=== PATIENT | female | born 1950 | race Caucasian/White ===

== ENCOUNTER 2016-12-18 14:22 | Emergency (ER) | payer BC ==
[~2016-12-18] VITALS: Ht 162.6 cm; Wt 60.5 kg
[~2016-12-18 14:22] MED LIST: ASPIRIN 81M81 MG/TA2 PO; CELEXA20 MG PO; CLARITIN; COZAAR100 MG PO; PHENERGAN 25 TA25 MG PO; PRAVACHOL 20MG20 MG PO; TOPROL XL 50MG50 MG PO; [UNRECOGNIZED DRUG - OTHER]
[2016-12-18 14:25] VITALS: PULSE 80; TEMP 98
[2016-12-18] MEDS ORDERED: PROTONIX 40MG T40 MG PO (15:03)
[2016-12-18] MEDS ORDERED: DESYREL 100MG100 MG PO (15:03)
[2016-12-18 15:35] LABS: BASO % 0.7 % (0.0-2.0); EOS % 0.4 % (0-4.0); GRAN # 3.7 (1.4-6.5); HEMATOCRIT 38.4 % (37.0-47.0); LYMPH # 0.4 (1.2-3.4); LYMPH % 7.9 % (20.0-51.0); MEAN CELL VOLUME 91 fl (80.0-100.0); MEAN CORPUSCULAR HEMOGLOBIN 31 pg (27.0-31.0); MEAN CORPUSCULAR HGB CONC 34 g/dl (33.0-37.0); MEAN PLATELET VOLUME 10.2 fl (7.4-10.4); MONO # 0.4 (0.1-0.6); MONO % 9.6 % (1.7-9.3); PLATELET COUNT 225 K/mm3 (130-400); RED BLOOD COUNT 4.23 M/mm3 (4.10-5.30); REDCELL DISTRIBUTION WIDTH-CV 12.2 % (11.5-14.5); WHITE BLOOD COUNT 4.6 K/mm3 (4.8-10.8)
[2016-12-18 15:46] LABS: ADJUSTED CALCIUM 8.7 mg/dL (8.4-10.2); ALANINE AMINOTRANSFERASE 32 U/L (9-52); ALBUMIN 4.5 gm/dL (3.5-5.0); ALKALINE PHOSPHATASE 111 U/L (50-136); ANION GAP 16 mmol/L (7-16); BILIRUBIN,TOTAL 0.7 mg/dL (0.0-1.0); BLOOD UREA NITROGEN 14 mg/dL (7-17); CALCIUM 9.1 mg/dL (8.4-10.2); CARBON DIOXIDE 20 mmol/L (22-30); CHLORIDE 95 mmol/L (98-107); CREATININE, serum 1.13 mg/dL (0.52-1.25); GLUCOSE 102 mg/dL (74-106); LIPASE 295 U/L (23-300); POTASSIUM 4.4 mmol/L (3.4-5.0); SODIUM 131 mmol/L (137-145); TOTAL PROTEIN 7.5 gm/dL (6.4-8.2)
[2016-12-18 15:47] LABS: C-REACTIVE PROTEIN < 0.5 mg/dL (0.0-0.9)
[2016-12-18 15:57] LABS: TROPONIN-I < 0.012 ng/mL (0.000-0.034)
[2016-12-18] MEDS ORDERED: ZOFRAN ODT4 MG PO (16:54)
[2016-12-18 17:04] LABS: PH 7 (5-8); SQUAMOUS EPITHELIAL 0-2 /hpf; URINE APPEARANCE Clear; URINE BACTERIA Rare /hpf; URINE BILIRUBIN Negative (NEGATIVE); URINE BLOOD Negative (NEGATIVE); URINE COLOR Yellow; URINE GLUCOSE Negative (NEGATIVE); URINE KETONE 1+ (NEGATIVE); URINE RBC 0-2 /hpf; URINE UROBILINOGEN Negative (NEGATIVE)
[2016-12-18] MEDS ORDERED: PHENERGAN 25 TA25 MG PO (17:31)
[2016-12-18 17:34] VITALS: BP 159/78
== END 2016-12-18 17:35 | disposition home or self-care (01) ==
LOC: COL.ER 14:22
PROVIDERS: Emergency Medicine
DX: R11.10 Vomiting, unspecified (principal); R19.7 Diarrhea, unspecified; I10 Essential (primary) hypertension
CPT/HCPCS: J2405; J2550; J7030

== ENCOUNTER → 2016-12-28 | Outpatient (CLI) | payer BC ==
[~2016-12-28] MED LIST changes: +DESYREL 100MG100 MG PO; +PROTONIX 40MG T40 MG PO; +ZOFRAN ODT4 MG PO
== END ==
LOC: MC.RAD 13:15
DX: Z12.31 Encounter for screening mammogram for malignant neoplasm of breast (principal)

== ENCOUNTER → 2017-10-10 | Outpatient (CLI) | payer MEDICARE, BC | LOC: MC.RAD 12:54 | DX: Z12.31 Encounter for screening mammogram for malignant neoplasm of breast (principal) ==

== ENCOUNTER → 2018-10-14 | Outpatient (CLI) | payer MEDICARE, BC | LOC: MC.RAD 14:45 | DX: Z12.31 Encounter for screening mammogram for malignant neoplasm of breast (principal) ==

== ENCOUNTER → 2019-11-20 | Outpatient (CLI) | payer MEDICARE, BC | LOC: MC.RAD 10-20 13:15 | DX: Z12.31 Encounter for screening mammogram for malignant neoplasm of breast (principal) ==

== ENCOUNTER 2019-12-30 07:43 | Outpatient (CLI) | payer MEDICARE, BC ==
[2019-12-30] VITALS (7 sets, daily range): BP systolic 148–168; BP diastolic 80–96; PULSE 62–66; TEMP 98.4
[~2019-12-30] VITALS: Ht 162.7 cm; Wt 59.7 kg
[2019-12-30 08:30] LABS: HEMATOCRIT 39.4 % (37.0-47.0); MEAN CELL VOLUME 93 fl (80.0-100.0); MEAN CORPUSCULAR HEMOGLOBIN 31 pg (27.0-31.0); MEAN CORPUSCULAR HGB CONC 33 g/dl (33.0-37.0); MEAN PLATELET VOLUME 10.3 fl (7.4-10.4); PLATELET COUNT 275 K/mm3 (130-400); RED BLOOD COUNT 4.23 M/mm3 (4.10-5.30)
[2019-12-30 08:37] LABS: PROTHROMBIN TIME 11.7 SECONDS (9.7-12.8)
[2019-12-30] MEDS ORDERED: AVAPRO300 M1 PO (08:46)
[2019-12-30] MEDS ORDERED: PRAVACHOL 40MG40 MG PO (08:47)
[2019-12-30] MEDS ORDERED: DESYREL 50MG50 MG PO (08:48)
[2019-12-30] MEDS ORDERED: CELEXA 20MG20 MG/TAB PO (08:48)
[2019-12-30] MEDS ORDERED: ATIVAN 0.50.5 MG/TAB PO (08:49)
[2019-12-30 08:50] LABS: CALCIUM 9.7 mg/dL (8.4-10.2); CREATININE, serum 0.98 (0.52-1.25); POTASSIUM 4.5 mmol/L (3.4-5.0)
[2019-12-30] MEDS ORDERED: MASON NATURAL2000 IU PO (08:50)
[2019-12-30] MEDS ORDERED: PHENERGAN 25 TA25 MG PO (08:50)
[2019-12-30] MEDS ORDERED: CALTRATE 600 +1 TAB PO (08:51)
[2019-12-30] MEDS ORDERED: ASPIRIN 81M81 MG/TA2 PO (08:51)
--- NOTE | 2019-12-30 11:28 | NUR ---
Discharge instructions given to pt.pt verbalizes understanding.INT removed,catheter tip intact.Pt escorted out via wheelchair by this nurse.
== END 2019-12-30 11:29 | disposition home or self-care (01) ==
LOC: EUO 07:43
PROVIDERS: Internal Medicine Cardiovascular Disease
DX: Q21.1 Atrial septal defect (principal)
CPT/HCPCS: J2704; J7120

== ENCOUNTER 2020-01-25 10:59 | Emergency (ER) | payer MEDICARE, BC ==
[~2020-01-25] VITALS: Ht 162.6 cm; Wt 59.5 kg
[~2020-01-25 10:59] MED LIST changes: +ATIVAN 0.50.5 MG/TAB PO; +AVAPRO300 M1 PO; +CALTRATE 600 +1 TAB PO; +CELEXA 20MG20 MG/TAB PO; +DESYREL 50MG50 MG PO; +MASON NATURAL2000 IU PO; +PRAVACHOL 40MG40 MG PO
[2020-01-25 11:01] VITALS: TEMP 98.4
[2020-01-25 12:00] LABS: BASO % 0.6 % (0.0-2.0); EOS # 0.1 (0.0-0.7); EOS % 0.8 % (0-4.0); GRAN # 4.2 (1.4-6.5); GRAN % 66.4 % (42.2-75.2); HEMATOCRIT 39.9 % (37.0-47.0); HEMOGLOBIN 13.2 g/dl (12.5-16.0); LYMPH # 1.6 (1.2-3.4); LYMPH % 25.2 % (20.0-51.0); MEAN CELL VOLUME 93 fl (80.0-100.0); MEAN CORPUSCULAR HEMOGLOBIN 31 pg (27.0-31.0); MEAN CORPUSCULAR HGB CONC 33 g/dl (33.0-37.0); MONO # 0.4 (0.1-0.6); MONO % 6.7 % (1.7-9.3); PLATELET COUNT 273 K/mm3 (130-400); RED BLOOD COUNT 4.28 M/mm3 (4.10-5.30); REDCELL DISTRIBUTION WIDTH-CV 12.8 % (11.5-14.5)
[2020-01-25 12:05] LABS: ALANINE AMINOTRANSFERASE 15 U/L (4-34); ALBUMIN 4.4 gm/dL (3.5-5.0); ALKALINE PHOSPHATASE 106 U/L (50-136); ANION GAP 9 mmol/L (7-16); AST,SGOT 35 U/L (15-37); BILIRUBIN,TOTAL 0.6 mg/dL (0.0-1.0); BLOOD UREA NITROGEN 14 mg/dL (7-17); CALCIUM 9.3 mg/dL (8.4-10.2); CARBON DIOXIDE 23 mmol/L (22-30); CHLORIDE 102 mmol/L (98-107); CREATININE, serum 0.95 (0.52-1.25); GLUCOSE 116 mg/dL (74-106); POTASSIUM 3.7 mmol/L (3.4-5.0); SODIUM 134 mmol/L (137-145); TOTAL PROTEIN 7.6 gm/dL (6.4-8.2)
[2020-01-25 12:06] LABS: C-REACTIVE PROTEIN < 0.5 mg/dL (0.0-0.9)
[2020-01-25 12:13] LABS: TROPONIN-I < 0.012 ng/mL (0.000-0.035)
[2020-01-25 14:30] VITALS: BP 180/95; PULSE 70
[2020-01-25] MEDS ORDERED: ANTIVERT 12.512.5 MG PO (14:38)
== END 2020-01-25 14:45 | disposition home or self-care (01) ==
LOC: COL.ER 10:59
PROVIDERS: Nurse Practitioner
DX: R42 Dizziness and giddiness (principal); E78.5 Hyperlipidemia, unspecified; Z79.82 Long term (current) use of aspirin
CPT/HCPCS: J3360; J7030

== ENCOUNTER → 2020-12-17 | Outpatient (CLI) | payer MEDICARE, BC ==
[~2020-12-17] MED LIST changes: +ANTIVERT 12.512.5 MG PO
== END ==
LOC: MC.RAD 13:04
DX: Z12.31 Encounter for screening mammogram for malignant neoplasm of breast (principal)

== ENCOUNTER → 2021-12-20 | Outpatient (CLI) | payer MEDICARE, BC | LOC: MC.RAD 11:33 | DX: Z12.31 Encounter for screening mammogram for malignant neoplasm of breast (principal) ==

== ENCOUNTER → 2023-08-03 | Outpatient (CLI) | payer MEDICARE, BC ==
[~2023-08-03] MED LIST changes: +CATAPRES 0.1MG0.1 MG PO; +CRESTOR5 MG PO; +NORCO 325 MG-51 TAB PO; +NORVASC2.5 MG PO; +PROLIA60 MG/ML SQ; +TENORMIN 2525 MG/TAB; +VITAMIN D31000 I1 PO
== END ==
LOC: COL.LAB 11:53
DX: R05.3 Chronic cough (principal)

== ENCOUNTER → 2024-04-02 | Outpatient (CLI) | payer MEDICARE, BC ==
[~2024-04-02] MED LIST changes: +Gadoterate 15 ML VIAL IV ONE; +TAMOXIFEN CITRA20 MG PO; +VITAMINC1000TA PO
== END ==
LOC: COL.RAD 12:50
DX: R90.82 White matter disease, unspecified (principal); R42 Dizziness and giddiness; R41.3 Other amnesia; R41.89 Other symptoms and signs involving cognitive functions and awareness; R26.9 Unspecified abnormalities of gait and mobility
CPT/HCPCS: A9575

== ENCOUNTER 2024-04-03 14:44 | Outpatient (CLI) | payer MEDICARE, BC ==
[~2024-04-03] VITALS: Ht 162.6 cm; Wt 61.6 kg
[~2024-04-03 14:44] MED LIST changes: -Gadoterate 15 ML VIAL IV ONE; -TAMOXIFEN CITRA20 MG PO; -VITAMINC1000TA PO
[2024-04-03] MEDS ORDERED: Denosumab 60 MG/ML SYRINGE SQ ONE (15:15)
[2024-04-03 15:28] VITALS: BP 133/79; PULSE 66; TEMP 98.3
[2024-04-03] MEDS ORDERED: TAMOXIFEN CITRA20 MG PO (16:11)
[2024-04-03] MEDS ORDERED: VITAMINC1000TA PO (16:12)
== END 2024-04-03 16:13 ==
LOC: EUO 14:44
DX: M81.0 Age-related osteoporosis without current pathological fracture (principal)
CPT/HCPCS: J0897